=== PATIENT | female | born 1985 | race Caucasian/White ===

== ENCOUNTER 2023-12-19 13:31 | Observation (INO) | payer OTHER ==
[~2023-12-19] VITALS: Ht 175.3 cm; Wt 80.3 kg
[2023-12-19 15:49] VITALS: BP 120/66; PULSE 80; RESP 18; TEMP 98.1
== END 2023-12-19 14:23 | disposition home or self-care (01) ==
LOC: MLD 13:31
PROVIDERS: ADMIT Obstetrics & Gynecology; ATTEND Obstetrics & Gynecology
DX: O26.893 Other specified pregnancy related conditions, third trimester (principal); R10.9 Unspecified abdominal pain; Z3A.34 34 weeks gestation of pregnancy
CPT/HCPCS: G0378